=== PATIENT | female | born 1955 | race Two or more races ===

== ENCOUNTER 2018-07-13 07:46 | Day surgery (SDC) | payer OTHER ==
[2018-07-13] VITALS (11 sets, daily range): BP systolic 114–144; BP diastolic 66–83
[~2018-07-13] VITALS: Ht 149.9 cm; Wt 67.1 kg
[~2018-07-13 07:46] MED LIST: Midazolam 2mg/2ml Inj ONE; Propofol 200mg/20ml IV ONE; fentaNYL 100 mcg/2 mL IV ONE
[2018-07-13] MEDS ORDERED: METFORMIN HCL500 M1 ORAL (09:30)
[2018-07-13] MEDS ORDERED: COZAAR50 MG ORAL (09:31)
[2018-07-13] MEDS ORDERED: AMLODIPINE BESYL5 MG ORAL (09:32)
[2018-07-13] MEDS ORDERED: ATORVASTATIN CA40 MG ORAL (09:32)
[2018-07-13] MEDS ORDERED: OMEPRAZOLE40 M1 ORAL (09:32)
[2018-07-13] MEDS ORDERED: vit D3 PO (09:33)
--- NOTE | 2018-07-13 09:39 | Short Stay Surgery H&P ---
History of Present Illness History of Present Illness Chief Complaint Abdominal pains and GERDS HPI Armida Burrows is a 62 year old female who was admitted on for GERD Patient History Allergies: Coded Allergies: No Known Allergies (Unverified , 07/13/18) PAST MEDICAL HISTORY: (1) Hypotension (2) Hyperlipidemia (3) Diabetes (4) Carpal tunnel syndrome (5) H/O foot surgery (6) H/O knee surgery (7) H/O cervical spine surgery Medication History Scheduled Amlodipine Besylate* (Amlodipine Besylate*), 5 MG ORAL DAILY, (Reported) Atorvastatin Calcium* (Atorvastatin Calcium*), 40 MG ORAL BEDTIME, (Reported) Losartan Potassium* (Cozaar*), 100 MG ORAL DAILY, (Reported) Metformin Hcl* (Metformin Hcl*), 500 MG ORAL DAILY, (Reported) Omeprazole (Omeprazole), 40 MG ORAL DAILY, (Reported) [vit D3], 2,000 PO DAILY, (Reported) Review of Systems Cardiovascular: Reports: hypertension Respiratory: Reports: no symptoms Skeletal: Reports: trauma Gastrointestinal: Reports: gastro esophageal reflux disease Genitourinary: Reports: no symptoms Neurologic: Reports: no symptoms Endocrine: Reports: diabetes - type 2 Hematologic: Reports: no symptoms Physical Exam Skin: normal HENT: normal Heart: normal Lungs: normal Abdomen: abnormal Extremities: normal Genitourinary: normal Plan Plan of Care Upper Gi endoscopy and biopsy Preop Interventions None Summary of Findings See the reports Attestation Are the patient's medical conditions optimized for surgery? Attestation Response: yes Alicia Morales MD Jul 13, 2018 09:39
--- NOTE | 2018-07-13 09:40 | Pre-Procedure Note/Attestation ---
Pre-Procedure Note/Attestation Complete Prior to Procedure Planned Procedure: left Procedure Narrative: Examinatin of the upper GI tract via endoscopy. Indications for Procedure Pre-Operative Diagnosis: R/O Gastritis/Esophagitis. Peptic Ulcer Attestation I attest that I discussed the nature of the procedure; its benefits; risks and complications; and alternatives (and the risks and benefits of such alternatives ), prior to the procedure, with the patient (or the patient's legal b2b outside sales representative). I attest that, if there was a reasonable possibility of needing a blood transfusion, the patient (or the patient's legal b2b outside sales representative) was given the [place] [employer] standardized written summary, pursuant to the Ryan Tamar Blood Safety Act ([place] Health and Safety Code # 1645, as amended). I attest that I re-evaluated the patient just prior to the surgery and that there has been no change in the patient's H&P, except as documented below: Alicia Morales MD Jul 13, 2018 09:40
--- NOTE | 2018-07-13 09:46 | Anethesia Preoperative Eval ---
Anesthesia Pre-op PMH/ROS General Date of Evaluation: Jul 13, 2018 Time of Evaluation: 09:55 Anesthesiologist: ASA Score: ASA 3 Mallampati Score Class I : Soft palate, uvula, fauces, pillars visible Class II: Soft palate, uvula, fauces visible Class III: Soft palate, base of uvula visible Class IV: Only hard plate visible Mallampati Classification: Class II Surgeon: kerrie Diagnosis: GERD Surgical Procedure: EGD Allergies: Coded Allergies: No Known Allergies (Unverified , 07/13/18) Past Medical History Cardiovascular: Reports: HTN; Denies: CAD, AL, valve dz, arrhythmia, other Gastrointestinal/Genitourinary: Reports: GERD Endocrine: Reports: DM Anesthesia Pre-op Phys. Exam Physician Exam Last Vital Signs Date Time Temp Pulse Resp B/P (MAP) Pulse Ox O2 Delivery O2 Flow Rate FiO2 07/13/18 09:37 Room Air 07/13/18 09:34 97.8 89 18 144/75 (98) 97 97.8 Constitutional: NAD Cardiovascular: RRR Respiratory: CTA Gastrointestinal: S/NT/ND Airway Exam Mallampati Score: Class II MO: full ROM: full Teeth: intact Dentures: no upper, no lower Anesthesia Pre-op A/P Risk Assessment & Plan Assessment: asa 3 Plan: MAC Status Change Before Surgery: No Pre-Antibiotics Drug: none Aleyda Daniels M.D. Jul 13, 2018 09:46
[2018-07-13] MEDS ORDERED: LR 1000ml 1,000 ML IVLG SCH (09:48)
[2018-07-13] MEDS ORDERED: DiphenhydrAMINE 50mg/ml Inj IVP PRN (10:00)
[2018-07-13] MEDS ORDERED: fentaNYL 100 mcg/2 mL IV PRN (10:00)
--- NOTE | 2018-07-13 10:15 | Immediate Post-Op Evaluation ---
Immediate Post-Op Evalulation Immediate Post-Op Evalulation Procedure: EGD Date of Evaluation: Jul 13, 2018 Time of Evaluation: 10:16 IV Fluids: LR 300ml Blood Products: 0 Estimated Blood Loss: 0 Urinary Output: 0 Blood Pressure Systolic: 121 Blood Pressure Diastolic: 75 Pulse Rate: 76 Respiratory Rate: 17 O2 Sat by Pulse Oximetry: 100 Temperature (Fahrenheit): 98.2 Pain Score (1-10): 0 Nausea: No Vomiting: No Complications none Patient Status: awake, patent, none Hydration Status: adequate Drug: none Aleyda Daniels M.D. Jul 13, 2018 10:15
--- NOTE | 2018-07-13 10:17 | Endoscopy Procedure Note ---
Endoscopy Procedure Note General Indication for Procedure: Abdominal pains/nausea/GERD Procedures Performed: EGD - Completely normal Upper GI endoscopy. Biopsy was obtained per random from gastric body. Specimen: yes Pt Tolerated Procedure Well: Yes Estimated Blood Loss: none Anesthesia Anesthesiologist: Dr. Daniels Anesthesia: moderate sedation Medications Medication Given: see anesthesia record Inserted Devices Implant(s) used?: No Quality Quality of Bowel Preparation: Excellent Was there any complications?: No GI Core Measures 50 yrs or older w/o bx or poly: Not Applicable 10yrs. F/U not recommended: Not Applicable If not recommended, why?: Med reason:<3 yrs.: System Reason:<3 yrs.: Alicia Morales MD Jul 13, 2018 10:17
--- NOTE | 2018-07-13 10:18 | Discharge Instructions ---
Discharge Instructions Discharge Instructions Follow up with: See doctor Andrew after two weeks in the office For Congestive Heart Failure Reminder Report to your physician any weight gain of 5 pounds or more in one week. Alicia Morales MD Jul 13, 2018 10:18
--- NOTE | 2018-07-13 10:26 | 48 Hour Post Anesthesia Eval ---
Post Anesthesia Evaluation Procedure: EGD Date of Evaluation: Jul 13, 2018 Time of Evaluation: 10:46 Blood Pressure Systolic: 124 0: 68 Pulse Rate: 72 Respiratory Rate: 18 Temperature (Fahrenheit): 98.2 Airway: patent Nausea: No Vomiting: No Pain Intensity: 0 Hydration Status: adequate Mental Status/LOC: patient returned to baseline Post-Anesthesia Complications: none Follow-up care needed: ready to discharge Aleyda Daniels M.D. Jul 13, 2018 10:26
--- NOTE | 2018-07-13 18:30 | Pre-op HX & Phy Repo 2 SIG ---
DATE OF ADMISSION: 07/13/2018 HISTORY OF PRESENT ILLNESS: The patient is a 62-year-old female who is being seen prior to undergoing the procedure for upper GI endoscopy for which she has been scheduled to receive for evaluation of her gastrointestinal conditions and symptoms that she has been suffering from subsequent to her work injury. The patient was seen in the office sometime ago and she was evaluated with a complaint that she had in regards to the abdominal pain, particularly over the epigastric area and her symptoms of significant gastroesophageal reflux. The applicant had been hired by [employer] and had worked there for at least 7 to 8 years. 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 Subsequently in that job she was injured and she received multiple medications including nonsteroidal anti-inflammatory agents, NSAIDs along with significant analgesics and subsequently she started to have gastrointestinal symptoms as mentioned above. She reports that these pains are moderate in intensity and they are constant. She started to have symptoms that I mentioned after taking these medications that gradually made her very uncomfortable, as she is currently complaining of. She reported that the pains are not radiating towards the chest. She however as I mentioned, does have symptoms of gastroesophageal acid reflux, but she has never been treated with any acid suppressors or medication for controlling the acid reflux. The applicant also has occasional constipation, but no major diarrhea. She denies having any major rectal bleeding at this time. PAST MEDICAL HISTORY: The applicant has had conditions of diabetes mellitus type 2 and hypertension and hyperlipidemia and history of carpal tunnel syndrome. SURGICAL HISTORY: She has had surgeries of cervical spine along with right knee and right foot surgeries. ALLERGIES: Nonsignificant. FAMILY HISTORY: Revealed that there was cancer in the family for both parents, but the nature of it is not clear. HABITS: The applicant denies smoking cigarettes or drinking alcohol. MEDICATIONS: Current medication are atorvastatin, losartan, potassium, metformin, amlodipine, Lyrica, paroxetine, and vitamin D3. REVIEW OF SYSTEMS: Basically, history of present illness. The patient denies any chest pain or shortness of breath. There is no history of headaches or neurological conditions either. No urological symptoms. PHYSICAL EXAMINATION: GENERAL: Reveals an alert and oriented female, does not seem to be in any acute distress. She looks overweight, but well nourished and answers the questions properly. VITAL SIGNS: All are stable. HEENT: Normocephalic. Pupils are equal in size and reactive to light. No evidence of jaundice. NECK: Supple. No JVD or thyromegaly. CHEST: Clear to auscultation and percussion. HEART: S1 and S2 normal. Regular rhythm. No gallops or murmur. ABDOMEN: Soft, but there is areas of some tenderness over mostly abdomen and epigastric area, but there is no organomegaly. No masses palpated. EXTREMITIES: Within normal limits. CENTRAL NERVOUS SYSTEM: Grossly normal. PRELIMINARY PREOPERATIVE IMPRESSION: 1. Abdominal pain of uncertain etiology, epigastric pain, possibly consistent with gastroesophageal acid reflux, rule out peptic ulcer disease induced by ulcers, rule out esophagitis and gastritis. 2. History of nausea of uncertain etiology, rule out secondary to underlying gastritis or peptic ulcer disease caused by NSAID medications. 3. History of bodily injury, work-related. RECOMMENDATION: The applicant seems to be stable at this time to undergo the procedure of upper GI endoscopy for which she has been scheduled. She understands the risks and benefits and will sign the consent. Said Christopher Morales. DR: DONOVAN JOB#: [id number] CC:
--- NOTE | 2018-07-13 20:30 | Operative Note - Dictated ---
DATE OF OPERATION: 07/13/2018 SURGEON: Alicia Morales M.D. PROCEDURE: Esophagogastroduodenoscopy with biopsy. PREOPERATIVE DIAGNOSES: Nausea, gastroesophageal acid reflux, and epigastric pain. POSTOPERATIVE DIAGNOSIS: Completely normal upper GI endoscopy. Biopsy was done per random from gastric body. MEDICATION USED: Per Dr. Daniels, anesthesiologist. INSTRUMENT: GIF Olympus upper GI video endoscope. DESCRIPTION OF PROCEDURE: The patient, after arriving in endoscopy unit, was told about risks and benefits of the procedure which she accepted and signed informed consent. She was then put in the left lateral decubitus position. After adequate intravenous sedation, the scope was gently passed through the cricopharyngeal area, was lodged into the upper esophagus, and was gradually advanced towards gastroesophageal junction. The entire length of esophagus looked normal and there was no any evidence of abnormality such as ulcers, stricture, polyps, tumors, etc. GE junction also looked normal without any evidence of hiatal hernia or Vegas's. At this time, the scope was advanced into the stomach. Gastric cavity was distended. The areas of the fundus and the body and the antrum were examined in a closer fashion, which revealed no abnormalities. The gastric mucosa looked normal. No evidence of gastritis, peptic ulcer disease, polyps, or tumors was found. At this time, one random biopsy from gastric body was obtained and subsequently, the scope was passed through antrum and introduced into the pyloric channel. First and second portion of duodenum were found to be also completely within normal limits. Finally, scope was pulled out into the stomach. A retroflexion maneuver was applied and the area of the gastroesophageal junction was examined in a closer fashion, which revealed no abnormalities. At this time, the scope was pulled out and the procedure was terminated. The patient tolerated the procedure well and left the endoscopy room in a good condition. Alicia Morales M.D. DR: JAMIE JOB#: [id number] CC:
== END 2018-07-13 12:05 | disposition home or self-care (01) ==
LOC: GAS 07:46
DX: K29.70 Gastritis, unspecified, without bleeding (principal); B96.81 Helicobacter pylori [H. pylori] as the cause of diseases classified elsewhere; K21.9 Gastro-esophageal reflux disease without esophagitis; E78.5 Hyperlipidemia, unspecified; E11.9 Type 2 diabetes mellitus without complications; Z79.84 Long term (current) use of oral hypoglycemic drugs; I10 Essential (primary) hypertension; G56.00 Carpal tunnel syndrome, unspecified upper limb
CPT/HCPCS: 43239; 82962; J2250; J2704; J3010; 94003; 94150